=== PATIENT | male | born 1940 | race Caucasian/White ===

== ENCOUNTER 2020-03-08 16:49 | Emergency (ER) | payer MEDICARE, OTHER, SELFPAY ==
[2020-03-08 16:52] VITALS: BP 154/83; PULSE 71; RESP 18; TEMP 37.1; O2SAT 100
--- NOTE | 2020-03-08 16:54 | ED.SKABFB ---
HPI - Skin/Abscess/Foreign Bdy General Chief complaint: Skin/Abscess/Foreign Body Stated complaint: rash on leg and arm Time Seen by Provider: 03/08/20 16:54 Source: patient and RN notes reviewed History of Present Illness HPI narrative: Patient is a 79-year-old male who presents the urgent care with complaints of rash to bilateral legs and left arm. Patient states is been there for 4 days. Patient states that he has been using calamine and Benadryl topical. Denies any use of [id number] oral medication for the itch. Patient states he [place] is seen at the [facility] [place]. Patient denies of any known contact with outdoor plants such as poison genaro or poison oak. Patient denies of any recent new creams, detergents, lotions. No other acute complaints. No acute distress noted. Patient aware of the plan of care. Some parts of this dictation were generated by voice recognition software and may contain typographical and/or grammatical inaccuracies. Related Data Home Medications Medication Instructions Recorded Confirmed digoxin 03/08/20 furosemide 03/08/20 gabapentin 03/08/20 lisinopril 03/08/20 metoprolol succinate 03/08/20 simvastatin 03/08/20 Allergies Allergy/AdvReac Type Severity Reaction Status Date / Time Penicillins Allergy Weakness Verified 03/08/20 17:11 Review of Systems Review of Systems: Narrative: CONSTITUTIONAL: Denies fever, chills, or sweats. EYES: Denies visual changes, redness, or discharge. ENT: Denies rhinorrhea, congestion, sore throat, or otalgia. CARDIOVASCULAR: Denies chest pain, palpitations, or edema. RESPIRATORY: Denies cough or dyspnea. GASTROINTESTINAL: Denies abdominal pain, nausea, vomiting, or diarrhea. GENITOURINARY: Denies dysuria or hematuria. SKIN: Reports of itchy red rash to bilateral lower legs and left lower arm MUSCULOSKELETAL: Denies back pain, joint pain, or myalgia. NEUROLOGIC: Denies headache, numbness, or weakness. All other systems reviewed are negative, except as documented in HPI. PMFSH Comments At the time of my signature, I reviewed and agree with the nursing past medical, surgical, social, and family history. There is no relevant family history pertinent to the patient complaint. Exam Narrative: Exam Narrative: GENERAL: This is a well-nourished, well-developed patient, in no apparent distress. HEAD: normocephalic, atraumatic. EYES: PERRL. Sclera clear/white. Vision is grossly intact. EARS: External ears normal NOSE: External nose normal with no obvious nasal discharge, nares without redness, no rhinorrhea. THROAT: Mucous membranes moist NECK: Neck supple SKIN: Pruritic erythemic papular and pustular lesions to the left lower leg approximately 6 x 6 cm, left lower arm approximately 3 x 4 cm and faint area to the right medial lower leg approximately 2 cm NEURO: awake, alert, and oriented to person, place and time. There were no obvious focal neurologic abnormalities. EXTREMITIES: No clubbing, cyanosis, or edema. Course Vital Signs Vital signs: Vital Signs Temperature 98.7 F 03/08/20 16:52 Pulse Rate 71 03/08/20 16:52 Respiratory Rate 18 03/08/20 16:52 Blood Pressure 154/83 H 03/08/20 16:52 Pulse Oximetry 100 03/08/20 16:52 Temperature 98.7 F 03/08/20 17:14 Pulse Rate 71 03/08/20 17:14 Respiratory Rate 18 03/08/20 17:14 Blood Pressure 154/83 H 03/08/20 17:14 Pulse Oximetry 100 03/08/20 17:14 Reviewed-patient is informed that they may have pre-hypertension or hypertension based on a blood pressure reading in the department. I recommend the patient call the primary care provider listed on their discharge instructions or a physician of their choice this week to arrange follow-up for further evaluation of possible pre-hypertension or hypertension. MDM - Skin/Abscess/Foreign Bdy MDM Narrative Medical decision making narrative: Advised the patient to complete oral steroid regimen
[2020-03-08 17:14] VITALS: BP 154/83; PULSE 71; RESP 18; TEMP 37.1; O2SAT 100
== END 2020-03-08 17:18 | disposition home or self-care (01) ==
PROVIDERS: Emergency Provider Nurse Practitioner Family
DX: L23.7 Allergic contact dermatitis due to plants, except food (principal); E78.00 Pure hypercholesterolemia, unspecified; I10 Essential (primary) hypertension; M19.90 Unspecified osteoarthritis, unspecified site; Z85.038 Personal history of other malignant neoplasm of large intestine
CPT/HCPCS: 99213; G0463

== ENCOUNTER 2020-12-15 09:19 | Emergency (ER) | payer OTHER, MEDICARE, SELFPAY ==
[2020-12-15 09:58] VITALS: BP 115/59; PULSE 78; RESP 18; TEMP 37.1; O2SAT 98
--- NOTE | 2020-12-15 10:02 | ED.MEDCLEAR ---
HPI - Medical Clearance General Chief complaint: Medical Clearance Stated complaint: Left Hip/Leg Fall Injury Time Seen by Provider: 12/15/20 10:02 History of Present Illness HPI Narrative: Patient presents with chronic left leg numbness. Patient states he works for the [employer] and was putting a sign up 3 months ago and slipped into the hole. Patient states he has had numbness to his left leg from the thigh down since then. No open areas no deformity good pedal pulses. Patient states he was sent here by his place of employment for a second opinion. Patient states he is scheduled to have an MRI December 26 on his left leg Related Information Home Medications Medication Instructions Recorded Confirmed digoxin 03/08/20 furosemide 03/08/20 gabapentin 03/08/20 lisinopril 03/08/20 metoprolol succinate 03/08/20 simvastatin 03/08/20 Allergies Allergy/AdvReac Type Severity Reaction Status Date / Time Penicillins Allergy Weakness Verified 03/08/20 17:11 Review of Systems Review of Systems: CONSTITUTIONAL: Denies fever, chills, or sweats. EYES: Denies visual changes, redness, or discharge. ENT: Denies rhinorrhea, congestion, sore throat, or otalgia. CARDIOVASCULAR: Denies chest pain, palpitations, or edema. RESPIRATORY: Denies cough or dyspnea. GASTROINTESTINAL: Denies abdominal pain, nausea, vomiting, or diarrhea. GENITOURINARY: Denies dysuria or hematuria. SKIN: Denies rash or itching. MUSCULOSKELETAL: Denies back pain, joint pain, or myalgia. Numbness to left lower leg from thigh to foot NEUROLOGIC: Denies headache, numbness, or weakness. PSYCHIATRIC: Denies anxiety or depression. PMFSH Comments At time of signature, agree with nursing past medical, surgical, social and family history. There is no relevant family history pertinent to the presenting complaint Exam Narrative: GENERAL: Well-appearing, well-nourished, and in no acute distress. HEAD: Normocephalic, atraumatic. EYES: PERRLA and EOMI. ENT: Nares clear, no rhinorrhea or epistaxis. Mucous membranes moist. NECK: Supple. CHEST: Clear to auscultation. No respiratory distress. HEART: Regular rate and rhythm. No murmur heard. Normal peripheral pulses. ABDOMEN: Soft, nontender, nondistended, normal active bowel sounds. EXTREMITIES: Normal range of motion. No edema. NO PARASPINAL TENDERNESS, NO VERTEBRAL TENDERNESS OR STEP OFFS. NO SWELLING. NORMAL ROM OF NECK. NORMAL UE STRENGTH AND SENSATION. HIP EXAM - SKIN INTACT. NO BRUISING, REDNESS OR SWELLING. NO INGUINAL MASSES OR LYMPHADENOPATHY. NO INGUINAL TENDERNESS, ANTERIOR OR LATERAL HIP TENDERNESS. NO BUTTOCK OR SI JOINT TENDERNESS. HAS NORMAL FLEXION, EXTENSION, AND ROTATION OF HIP BACK EXAM - NO VERTEBRAL POINT SPECIFIC TENDERNESS OR STEP OFFS. NORMAL ROM OF BACK. NORMAL FLEXION AND EXTENSION OF BACK. NO CVA TENDERNESS. LEG EXAM - NO CALF OR ANKLE SWELLING, DISCOLORATION. NORMAL FOOT SENSATION AND CAP REFILL. NORMAL DP PULSE. SKIN: Warm, dry, no rash. NEURO: No focal deficits. Alert and oriented x3. [place] Coma Scale Eye Opening: Spontaneous 4 [place] Coma Scale Motor: Obeys Commands 6 [place] Coma Scale Verbal: Oriented 5 [place] Coma Scale Total 15 Course Vital Signs Vital signs: Vital Signs Temperature 37.1 C 12/15/20 09:58 Pulse Rate 78 12/15/20 09:58 Respiratory Rate 18 12/15/20 09:58 Blood Pressure 115/59 L 12/15/20 09:58 Pulse Oximetry 98 12/15/20 09:58 Temperature 37.1 C 12/15/20 09:58 Pulse Rate 78 12/15/20 09:58 Respiratory Rate 18 12/15/20 09:58 Blood Pressure 115/59 L 12/15/20 09:58 Pulse Oximetry 98 12/15/20 09:58 Discussed with patient need to keep the MRI as scheduled December 262020. Critical dx considered and discussed with pt. Educated patient on red flag s/s and to go to ED if s/s occur. Discussed with pt when to return to [facility] or primary care provider. Pt gave verbal undertstanding, all questions were answered, and pt was agreea
== END 2020-12-15 10:14 | disposition home or self-care (01) ==
PROVIDERS: Emergency Provider Nurse Practitioner Family
DX: R20.0 Anesthesia of skin (principal); E78.00 Pure hypercholesterolemia, unspecified; I10 Essential (primary) hypertension; M19.90 Unspecified osteoarthritis, unspecified site; Z85.038 Personal history of other malignant neoplasm of large intestine
CPT/HCPCS: 99211; G0463